=== PATIENT | male | born 1970 | race Caucasian/White ===

== ENCOUNTER 2018-04-06 13:34 | Inpatient (IN) | payer MEDICARE, MEDICAID ==
[2018-04-06] MEDS ORDERED: IBUPROFEN 200 MG TAB PO ONE (13:52)
[2018-04-06] MEDS ORDERED: VANCOMYCIN HCL INJ 1,000 MG, VANCOMYCIN HCL INJ 500 MG in SODIUM CHLORIDE 0.9% 250ML 25... IVPB ONE (14:02)
[2018-04-06] MEDS ORDERED: VANCOMYCIN HCL INJ 1,000 MG VIAL IVPB ONE (14:19)
[2018-04-06] MEDS ORDERED: VANCOMYCIN HCL INJ 500 MG VIAL ONE (14:19)
[2018-04-06] MEDS ORDERED: SODIUM CHLORIDE 0.9% 250ML 250 ML ONE (14:20)
--- NOTE | 2018-04-06 15:25 | RAD ---
EXAM DESCRIPTION: Neck,Soft Tissue CLINICAL HISTORY: facial cellulitis, sob, difficulty swallowing COMPARISON: None. TECHNIQUE: 2 views FINDINGS: Degenerative changes are observed in the lower cervical spine. No soft tissue abnormality is seen. No abnormal radiopaque foreign body is observed. The area epiglottic folds are intact. IMPRESSION: Mild degenerative changes are observed in the lower cervical spine. The exam is otherwise unremarkable. Electronically signed by: Jackson Busby MD 04/06/2018 3:24 PM CDT
--- NOTE | 2018-04-06 15:26 | RAD ---
EXAM DESCRIPTION: Chest,1 View CLINICAL HISTORY: facial cellulitis, sob, difficulty swallowing COMPARISON: None available TECHNIQUE: 1 view FINDINGS: The lungs are clear. There is no infiltrate or effusion. The heart is normal size. IMPRESSION: Normal one view chest Electronically signed by: Jackson Busby MD 04/06/2018 3:24 PM CDT
[2018-04-06] MEDS ORDERED: PIPERACILLIN/TAZOBACTAM 3.375 GM in SODIUM CHLORIDE 0.9% 100ML 100 ML IVPB ONE (15:40)
--- NOTE | 2018-04-06 16:10 | ED.PDOC ---
History of Present Illness - General Chief Complaint: Skin/Abrasion/Tear Stated Complaint: L facial swelling Time Seen by Provider: 04/06/18 13:51 Source: patient Exam Limitations: no limitations - History of Present Illness Initial Comments: the patient is a 47-year-old male presenting to emergency room secondary to a left-sided facial cellulitis that extends from the left nasolabial fold. It has been present and progressive for the last 48 hours. The patient is starting to feel sick from it. He does have exquisite pain over the area. he is having some mild nausea and diaphoresis. He is feeling tremulous. Timing/Duration: other - 48 hours Severity: moderate Improving Factors: nothing Worsening Factors: nothing Associated Symptoms: diaphoresis, fever/chills, malaise, nausea/vomiting Allergies/Adverse Reactions: Allergies NO KNOWN ALLERGY Allergy (Verified 04/06/18 14:24) Home Medications: Ambulatory Orders NK [NK] 04/06/18 Review of Systems - Review of Systems Constitutional: States: fever, malaise EENTM: States: see HPI Respiratory: States: no symptoms reported Cardiology: States: no symptoms reported Gastrointestinal/Abdominal: States: no symptoms reported Genitourinary: States: no symptoms reported Musculoskeletal: States: no symptoms reported Skin: States: see HPI Neurological: States: no symptoms reported Endocrine: States: no symptoms reported All other Systems: No Change from Baseline Past Medical History (General) - Patient Medical History Hx Seizures: No Hx Stroke: No Hx Dementia: No Hx Asthma: No Hx of COPD: No Hx Cardiac Disorders: No Hx Congestive Heart Failure: No Hx Pacemaker: No Hx Hypertension: No Hx Thyroid Disease: No Hx Diabetes: No Hx Gastroesophageal Reflux: No Hx Renal Disease: No Hx of HIV: No Hx MRSA: No - Vaccination History Hx Tetanus, Diphtheria Vaccination: No Hx Influenza Vaccination: No - 2017 Hx Pneumococcal Vaccination: No - Social History Hx Tobacco Use: Yes Hx Alcohol Use: Yes - Social use Family Medical History - Family History Father Family History: No Known Living Status: Still Living Physical Exam - Physical Exam General Appearance: Alert, Other - diaphoretic and obviously in pain Eye Exam: bilateral normal Ears, Nose, Throat: hearing grossly normal, normal pharynx, other - left upper lip swelling that extends up past the left nasal labial fold up towards the cheek. No erythema. Maximum induration is at the left nasolabial fold. 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 I did attempt to perform an aspiration of the area of maximum induration just to the left of the left nasolabial fold after risks and benefits were explained. what returned was mostly bloody. We did go ahead and culture that anyway. He also received a blood culture. Laboratory work and vital signs are actually reassuring however the patient appears much more sick than those would indicate. The patient has been started on vancomycin and Zosyn. He will be admitted for IV therapy and monitoring overnight. If he goes ahead and develops an abscess he will need either an I&D or a repeat attempted aspiration. Patient does understand this. no evidence of altered mental status or meningitis at this time. Admitted for further care. Departure - Departure Clinical Impression: Facial cellulitis Disposition: Admit Patient Home Medications: Ambulatory Orders NK [NK] 04/06/18 Decision To Admit - Decistion To Admit Decision to Admit Reason: Medical Nature Decision to Admit Date: 04/06/18 Decision to Admit Time: 16:13
--- NOTE | 2018-04-06 16:20 | HP ---
SUPERVISING PHYSICIAN: Slick Pedroza M.D. CHIEF COMPLAINT: Left facial swelling. HISTORY OF PRESENT ILLNESS: This is a 47 year-old male patient who presented to the Emergency Room secondary to a left sided facial cellulitis that extended from his upper lip to left of his nasal labial fold. It has been problematic for about 2 to 3 days. The patient said he had felt fairly sick from it and had a lot of pain over the area. He also complained of some mild nausea and diaphoresis. He denied fever but he did say he had some chills. In the Emergency Room his initial lab work showed a white count of 9.7 with hemoglobin 15.9, hematocrit 47.4. Chemistries showed electrolytes within normal limits. Lactic acid was 0.7. He was given some vancomycin in the Emergency Room and an initial dose of Zosyn. It is to be noted that he has very poor dentition. He was given some Motrin and I was called for hospital admission. PAST MEDICAL HISTORY: 1. Gastroesophageal reflux disease. 2. Multiple dental problems. PAST SURGICAL HISTORY: 1. Left eye surgery. 2. No surgery due to a broken nose. 3. Open reduction and internal fixation of the right ankle after a trauma. OUTPATIENT MEDICATIONS: None. ALLERGIES: NO KNOWN DRUG ALLERGIES. SOCIAL HISTORY: He is . He lives in [place]. He has 1 child. He smokes approximately 1 pack of cigarettes daily and has for over 30 years. He drinks 2 to 3 beers 2 to 3 times per week. He denies any illicit drug use. REVIEW OF SYSTEMS: GENERAL: Positive for chills and fatigue. Negative for fever or weight changes. HEENT: As per History of Present Illness. RESPIRATORY: Positive for shortness of breath and cough. Negative for wheezing. CARDIAC: Negative for chest pain, palpitations or tachycardia. GASTROINTESTINAL: Positive for nausea. Negative for vomiting, abdominal pain, constipation or diarrhea. GENITOURINARY: Negative for dysuria, polyuria or hematuria. SKIN: Positive for diaphoresis. Negative for lesions or rashes other than his face as per History of Present Illness. NEUROLOGIC: Negative for headaches, dizziness or seizures. LABORATORY: Labs as per History of Present Illness. He also has a C reactive protein of 6.5 and an ESR of 64. Blood cultures are pending. He also had a soft tissue neck x-ray that showed mild degenerative changes observed in the lower cervical spine. The exam is otherwise unremarkable. Chest x-ray shows normal one view chest. All other labs and films have been reviewed via the EMR. PHYSICAL EXAMINATION: VITAL SIGNS: GENERAL: HEENT: NECK: CHEST: CARDIOVASCULAR: ABDOMEN: EXTREMITIES: NEUROLOGIC: RECTAL: ASSESSMENT: 1. Left sided facial cellulitis, may be due to a previous abrasion and/or poor dentition. 2. Elevated blood pressure without diagnosis of hypertension. Question it is pain versus actual hypertension. 3. Gastroesophageal reflux disease. 4. Shortness of breath in a chronic smoker in a 30 plus pack year smoker. PLAN: We will admit the patient to the hospital. I will continue him on vancomycin per Pharmacy protocol. Will also continue the Zosyn. He will have a PPI for ulcer prophylaxis, Lovenox for DVT prophylaxis. Will monitor his cultures as well as repeat his lab for in the morning. He did have a culture done of the area on his face and it is difficult to ascertain if it is due to his poor dentition or if it is actually in the face. Dr. Marcano from the [facility] was not sure that it was an adequate sample, but there was a culture of the wound sent off. Will also need to monitor his blood pressure as he may need to be put on an antihypertensive. I have also given him some [place] for pain as well as some Motrin. Will continue to monitor him closely and follow as needed. Dr. Pedroza is the collaborating physician available for consultation. #[id number] [facility]ITALBrandon
[2018-04-06] MEDS ORDERED: PIPERACILLIN/TAZOBACTAM 3.375 GM VIAL IVPB ONE ×2 (17:39→19:26)
[2018-04-06] MEDS ORDERED: SODIUM CHLORIDE 0.9% 100ML 100 ML IVPB ONE ×2 (17:39→19:27)
[2018-04-06] MEDS ORDERED: SODIUM CHLORIDE 0.9% (FLUSH) 10 ML SYG IV PRN (18:09)
[2018-04-06] MEDS ORDERED: ALBUTEROL SULFATE 2.5 MG/3 ML VIAL NEB PRN (18:11)
[2018-04-06] MEDS ORDERED: IV SET AND CAP CHANGE INJ INJ SCH (18:30)
[2018-04-06] MEDS: KCL 20MEQ/0.45% NS 1,000 ML IVS PRN (18:58)
[2018-04-06] MEDS: ALBUTEROL SULFATE 2.5 MG/3 ML VIAL NEB SCH (19:50)
[2018-04-06] MEDS: HYDROcodone 5MG/APAP 325MG 1 EA TAB PO PRN (20:48)
[2018-04-06] MEDS: IBUPROFEN 200 MG TAB PO PRN (20:48)
[2018-04-06] MEDS: ENOXAPARIN SODIUM 40 MG/0.4 ML SYG SUBCU SCH (20:49)
[2018-04-06] MEDS: PIPERACILLIN/TAZOBACTAM 3.375 GM in SODIUM CHLORIDE 0.9% 100ML 100 ML IVPB SCH (21:31)
[2018-04-07] MEDS ORDERED: PIPERACILLIN/TAZOBACTAM 3.375 GM VIAL IVPB ONE ×4 (02:59→19:58)
[2018-04-07] MEDS ORDERED: SODIUM CHLORIDE 0.9% 100ML 100 ML IVPB ONE ×4 (02:59→19:59)
[2018-04-07] MEDS: IBUPROFEN 200 MG TAB PO PRN ×2 (03:08→14:55)
[2018-04-07] MEDS: PIPERACILLIN/TAZOBACTAM 3.375 GM in SODIUM CHLORIDE 0.9% 100ML 100 ML IVPB SCH ×3 (05:29→20:36)
[2018-04-07] MEDS: PANTOPRAZOLE SODIUM IV 40 MG VIAL IV SCH (06:36)
[2018-04-07] MEDS ORDERED: VANCOMYCIN PER PHARMACY INJ SCH (08:00)
[2018-04-07] MEDS: ALBUTEROL SULFATE 2.5 MG/3 ML VIAL NEB SCH ×2 (08:36→20:15)
[2018-04-07] MEDS ORDERED: SODIUM CHLORIDE 0.9% 250ML 250 ML ONE ×2 (09:39→17:37)
[2018-04-07] MEDS ORDERED: VANCOMYCIN HCL INJ 1,000 MG VIAL IVPB ONE ×2 (09:39→17:37)
[2018-04-07] MEDS: VANCOMYCIN HCL INJ 1,000 MG in SODIUM CHLORIDE 0.9% 250ML 250 ML IVPB SCH ×2 (09:44→17:52)
[2018-04-07] MEDS: HYDROcodone 5MG/APAP 325MG 1 EA TAB PO PRN ×2 (11:14→17:53)
[2018-04-07] MEDS: CHLORHEXIDINE MOUTH RINSE 473 ML BTTL SWSP SCH ×3 (12:38→20:35)
[2018-04-07] MEDS: KCL 20MEQ/0.45% NS 1,000 ML IVS PRN (12:38)
--- NOTE | 2018-04-07 14:23 | PN ---
SUPERVISING PHYSICIAN: Ayleen Pedroza MD DATE: 04/07/18 SUBJECTIVE: The patient continues to have a significant amount of pain to the left facial area. He notes the swelling is down a little bit. He has been afebrile overnight. He has had no additional complaints at this time. OBJECTIVE: VITAL SIGNS: T-max 98.5. Pulse 80. Blood pressure 148/77. Respirations 18. Saturation 97% on room air. I&Os show negative balance of 510 with 840 in, 1350 out. Weight 85.3 kg. GENERAL: The patient is in no apparent acute distress. He is resting comfortably and is alert. HEENT: Left side of the face over the left upper lip, there is still some swelling into the left nasolabial fold up into the cheek with some continued erythema. There is no obvious induration to the area, no fluctuations noted. No drainage is apparent. His oropharynx is pink. He has very poor dentition with multiple cracked teeth. NECK: Nontender, full range of motion. CHEST: Lungs clear to auscultation bilaterally. HEART: Regular rate and rhythm. ABDOMEN: Soft, nontender. Positive bowel sounds. EXTREMITIES: No cyanosis, clubbing or edema. NEUROLOGIC: Alert and oriented times three. LABORATORY: White count remains within normal limits at 8,100 with hemoglobin 15.2, hematocrit 45.2, platelet count 212,000. Differential without a left shift. Chemistries continue to show normal electrolytes. Potassium 3.9, BUN 7 , creatinine 0.89, glucose 94. Liver functions all within normal limits. MICROBIOLOGY: Blood cultures pending, but negative to date. Wound culture pending. ASSESSMENT: 1. Left sided facial cellulitis versus Erysiphales, uncertain etiology, probably related to poor dentition versus possible abrasion to upper lip, showing response with Unasyn and vancomycin. 2. High blood pressure without diagnosis of hypertension, likely due to pain response, stable. 3. Gastroesophageal reflux disease, stable. 4. Shortness of breath in a chronic smoker with a 30 plus pack year habit, continue to monitor. PLAN: At this point we will continue vancomycin per pharmacy protocol as well as Zosyn as he is showing good response to treatment. He remains on DVT prophylaxis. We will continue to monitor cultures and await those results to further target antibiotic therapy. We will anticipate at least another 48 hours of antibiotic coverage given the location of the cellulitis as well as the severity. I will start him on some Peridex orally to hopefully prevent any further worsening of any lesions or areas of concern orally. He certainly would benefit from seeing a dentist at some point. Once he is stable and can transition to outpatient treatment measures, he will need close clinical followup with primary care provider at some point. Until then, we will continue to monitor the patient closely and treat as needed. #[id number] [facility]
[2018-04-07] MEDS: ENOXAPARIN SODIUM 40 MG/0.4 ML SYG SUBCU SCH (20:35)
[2018-04-08] MEDS ORDERED: SODIUM CHLORIDE 0.9% 250ML 250 ML ONE ×4 (01:22→19:47)
[2018-04-08] MEDS ORDERED: VANCOMYCIN HCL INJ 1,000 MG VIAL IVPB ONE ×4 (01:22→19:48)
[2018-04-08] MEDS: VANCOMYCIN HCL INJ 1,000 MG in SODIUM CHLORIDE 0.9% 250ML 250 ML IVPB SCH ×3 (01:26→17:38)
[2018-04-08] MEDS: HYDROcodone 5MG/APAP 325MG 1 EA TAB PO PRN ×3 (01:33→18:45)
[2018-04-08] MEDS: PIPERACILLIN/TAZOBACTAM 3.375 GM in SODIUM CHLORIDE 0.9% 100ML 100 ML IVPB SCH ×3 (04:32→20:40)
[2018-04-08] MEDS: PANTOPRAZOLE SODIUM IV 40 MG VIAL IV SCH (05:54)
[2018-04-08] MEDS: ALBUTEROL SULFATE 2.5 MG/3 ML VIAL NEB SCH ×2 (07:13→19:56)
[2018-04-08] MEDS: CHLORHEXIDINE MOUTH RINSE 473 ML BTTL SWSP SCH ×4 (08:03→20:39)
[2018-04-08] MEDS: LISINOPRIL 10 MG TAB PO SCH (09:23)
[2018-04-08] MEDS: NICOTINE PATCH 21 MG TD SCH (11:26)
[2018-04-08] MEDS ORDERED: PIPERACILLIN/TAZOBACTAM 3.375 GM VIAL IVPB ONE ×3 (12:47→19:48)
[2018-04-08] MEDS ORDERED: SODIUM CHLORIDE 0.9% 100ML 100 ML IVPB ONE ×3 (12:47→19:49)
[2018-04-08] MEDS: KCL 20MEQ/0.45% NS 1,000 ML IVS PRN (13:27)
[2018-04-08] MEDS: ENOXAPARIN SODIUM 40 MG/0.4 ML SYG SUBCU SCH (20:39)
[2018-04-09] MEDS: VANCOMYCIN HCL INJ 1,000 MG in SODIUM CHLORIDE 0.9% 250ML 250 ML IVPB SCH ×2 (01:48→09:46)
[2018-04-09] MEDS: PIPERACILLIN/TAZOBACTAM 3.375 GM in SODIUM CHLORIDE 0.9% 100ML 100 ML IVPB SCH (04:45)
[2018-04-09] MEDS: PANTOPRAZOLE SODIUM IV 40 MG VIAL IV SCH (06:01)
[2018-04-09] MEDS: ALBUTEROL SULFATE 2.5 MG/3 ML VIAL NEB SCH (08:03)
[2018-04-09 08:41] VITALS: BP 144/87; TEMP 97.7; O2SAT 98
[2018-04-09] MEDS: HYDROcodone 5MG/APAP 325MG 1 EA TAB PO PRN (08:41)
[2018-04-09] MEDS: NICOTINE PATCH 21 MG TD SCH (08:41)
[2018-04-09] MEDS: LISINOPRIL 10 MG TAB PO SCH (08:41)
[2018-04-09] MEDS: CHLORHEXIDINE MOUTH RINSE 473 ML BTTL SWSP SCH (08:41)
[2018-04-09] MEDS ORDERED: SODIUM CHLORIDE 0.9% 250ML 250 ML ONE (09:37)
[2018-04-09] MEDS ORDERED: VANCOMYCIN HCL INJ 1,000 MG VIAL IVPB ONE (09:37)
[2018-04-09] MEDS ORDERED: INFLUENZA VIRUS VACC (ADULT) 0.5 ML SYG IM ONE (12:06)
--- NOTE | 2018-04-10 11:17 | PN ---
SUPERVISING PHYSICIAN: Ayleen Pedroza MD DATE: 04/08/18 SUBJECTIVE: The patient still has quite a bit of pain in his upper cheek area and nasolabial fold with some swelling. He notes he feels like the Peridex has helped somewhat, but he continues to feel poorly. OBJECTIVE: VITAL SIGNS: Temperature 97.9. Pulse 67. Blood pressure 121/80. Respirations 18. Saturation 96% on room air. I&Os are fairly balanced. Weight 85.9 kg. GENERAL: The patient appears to be comfortable in no acute distress. He is alert. HEENT: Left side of face continues with some swelling although improved from previous day, still notable around the nasolabial fold on the left side with some erythema. There is no obvious induration or fluctuation noted. No drainage. CHEST: Lungs clear to auscultation. HEART: Regular rate and rhythm. ABDOMEN: Soft, nontender. Positive bowel sounds. EXTREMITIES: No cyanosis, clubbing or edema. NEUROLOGIC: Alert and oriented times three. LABORATORY: C-reactive protein has shown elevation today from admission up to 8.1. Chemistries remain within normal limits. MICROBIOLOGY: Blood cultures are negative at 48 hours. Wound culture continues to be pending. ASSESSMENT: 1. Left sided facial cellulitis versus Erysiphales, uncertain etiology, probably related to poor dentition responding slowly to Unasyn and vancomycin, awaiting final culture results to target antibiotic therapy with elevating C-reactive protein requiring at least another 24 hours of more aggressive antibiotic therapy before transition to p.o. medication. 2. High blood pressure without diagnosis of hypertension, started o lisinopril , showing good response. 3. Gastroesophageal reflux disease, stable. 4. Shortness of breath in a chronic smoker with a 30 plus pack year history, improving. PLAN: I will continue vancomycin and Unasyn with anticipation of hopefully transitioning to p.o. medications tomorrow and discharging. We will continue to await culture results to further target antibiotic therapy. He is doing well on Peridex. I did discuss that he needs to followup with a primary care physician which he needs to establish with in regards to future healthcare and followup on this current acute illness as well as see a dentist in regard to his poor dentition. Until he can transition to p.o. medication, we will continue to monitor and treat as needed. #[id number] [facility]
--- NOTE | 2018-04-10 14:37 | DS ---
SUPERVISING PHYSICIAN: Ayleen Pedroza MD ADMISSION DIAGNOSIS: 1. Left sided facial cellulitis due to previous abrasion and/or poor dentition. 2. Elevated blood pressure with no formal diagnosis of hypertension. 3. Gastroesophageal reflux disease. 4. Shortness of breath in a chronic smoker with a 30 plus pack year history. DISCHARGE DIAGNOSIS: 1. Left sided facial cellulitis/Erysiphales, uncertain etiology, probably related to poor dentition and odontic disease versus small abrasion with abscess to the upper lip and left nasolabial fold, showing good response to Unasyn and vancomycin, with culture results showing a skin contaminant. 2. High blood pressure with no formal diagnosis, showing good response to lisinopril. 3. Gastroesophageal reflux disease, stable. 4. Shortness of breath, improved, in a chronic smoker with a 30 plus pack year history, encouraged to stop smoking. REASON FOR HOSPITALIZATION: Mr. Simon is a 47-year-old male patient who presented to the Emergency Room secondary to a left sided facial cellulitis that extended from his upper lip to left of his nasal labial fold. It had been problematic for about 2 to 3 days. The patient said he had felt fairly sick from it and had increasing pain over the area for the past couple of days. He also complained of some mild nausea and diaphoresis on admission, but denied fever, but did have some chills. In the Emergency Room, his initial lab work showed a white count of 9.7 with lactic acid was 0.7. He was given some vancomycin in the Emergency Room and an initial dose of Zosyn. He was admitted to the Medical/Surgical Floor for ongoing treatment with the patient having poor dentition as possibly the origin of infection. LABORATORY: CBC showed a normal white count both on admission and discharge. Hemoglobin and hematocrit were stable at 15.2 and 45.2 respectively at discharge. Platelet count 212,000. Differential without a left shift. ESR was elevated on admission at 54. Chemistries showed normal electrolytes both on admission through discharge with a creatinine of 0.79. He did have an elevated C-reactive protein at discharge of 8.1. Liver functions were all within normal limits. He had one vancomycin trough of 12.5. MICROBIOLOGY: Wound culture final results showed skin contaminant, normal kiana. Blood cultures remained negative after 3 days. RADIOLOGY: Soft tissue of the neck in the Emergency Room per radiologic interpretation showed mild degenerative changes of the lower cervical spine. The exam was otherwise unremarkable. Chest x-ray prior to admission showed normal one-view of the chest per radiologic interpretation. HOSPITAL COURSE: Mr. Simon was admitted on 04/06/18 as noted in history of present illness for facial cellulitis on the left side. He was started on Zosyn and vancomycin. He showed fairly slow response, but was improving prior to discharge and was felt well enough to continue with outpatient management and oral medications. It was noted his blood pressure was elevated through admission and he was started on lisinopril which did show some improvement. He was given nicotine patch and encouraged to stop smoking. The patient was started on Peridex oral, swish and spit, and showed good response to that treatment. PHYSICAL EXAMINATION: DISCHARGE VITAL SIGNS: Temperature 97.7. Pulse 87. Blood pressure 144/87. Respirations 16. Saturation 98% on room air. GENERAL: The patient was seen and examined. HEENT: Left side of the face showed mild erythema, but no significant swelling. It was no longer tender to palpation. The left upper lip showed continued mild edema and was tenderness to palpation, but no other areas of question of fluctuation or abscess formation were noted. CHEST: Clear to auscultation. HEART: Regular rate and rhythm. ABDOMEN: Soft, nontender. Positive bowel sounds. EXTREMITIES: Without cyanosis, clubbing or edema. NEUROLOGIC: Alert and oriented x3. PLAN: The patient was discharged on 04/09/18 with instructions to followup with a primary care provider. He is currently not under the care of any healthcare provider and was encouraged, and he voiced that he would go see Elia Yoder as soon as he could get an appointment. He was to continue with the oral Peridex and encouraged to see dentist. He likely will need extractions and will benefit from dentures. He was again encouraged to stop smoking. He was instructed on ways to stop and was given instructions on how to use a nicotine patch. He certainly more likely would benefit from some medication to assist in this such as Chantix or Wellbutrin. DISCHARGE INSTRUCTIONS: He was to continue with medications as prescribed. Diet was to increase as tolerated. Activity was to increase as tolerated. DISCHARGED MEDICATIONS: 1. Lisinopril 10 mg daily, #30, no refills. 2. Peridex 10 mL swish and spit 3 times a day, #1 bottle, no refills. 3. Tylenol No. 3 q.4h. as needed for pain, #30, no refills. 4. Continue antibiotic with 1 Augmentin 875 mg b.i.d. for 10 days, #20, no refills. 5. Doxycycline 100 mg b.i.d., #20, no refills. DISPOSITION: The patient is discharged to the care of his family. Condition on discharge was stable and improved. #[id number] [facility]
[2018-04-11] MEDS ORDERED: CHLORHEXIDINE MOUTH RINSE 473 ML BTTL ONE (13:18)
== END 2018-04-09 12:45 | disposition home or self-care (01) | DRG 603 ==
LOC: ER 13:34 → MS 16:18
PROVIDERS: ADMIT Nurse Practitioner Acute Care; ATTEND Nurse Practitioner Family
DX: L03.211 Cellulitis of face (principal); R03.0 Elevated blood-pressure reading, without diagnosis of hypertension; K21.9 Gastro-esophageal reflux disease without esophagitis; F17.210 Nicotine dependence, cigarettes, uncomplicated; K13.0 Diseases of lips

== ENCOUNTER 2019-02-12 20:56 | Emergency (ER) | payer MEDICAID, MEDICARE ==
[2019-02-12 21:12] VITALS: BP 153/111; TEMP 98.7
--- NOTE | 2019-02-12 21:13 | ED.PDOC ---
History of Present Illness - General Chief Complaint: Dental/Mouth Stated Complaint: toothache Time Seen by Provider: 02/12/19 21:10 Source: patient Exam Limitations: no limitations - History of Present Illness Initial Comments: the patient is a 48-year-old male presenting to the emergency room secondary to left lower dental painstarting earlier today. The patient has numerous dental caries and significant decay. No obvious abscess formation. He does appear to be having some referred neurological pain to that side of the cheek. Minimal cervical lymphadenopathy on that side. No obvious rash at this point. Timing/Duration: other - 12 hours Severity: moderate Improving Factors: nothing Worsening Factors: eating Associated Symptoms: denies symptoms Allergies/Adverse Reactions: Allergies NO KNOWN ALLERGY Allergy (Verified 04/06/18 16:48) Home Medications: Ambulatory Orders Amoxicillin & Pot Clavulanate [Augmentin Tab] 875 mg PO BID #14 tab 02/12/19 Tramadol HCl 50 mg PO Q8HR PRN #20 tab 02/12/19 Review of Systems - Review of Systems Constitutional: States: no symptoms reported EENTM: States: see HPI Respiratory: States: no symptoms reported Cardiology: States: no symptoms reported Gastrointestinal/Abdominal: States: no symptoms reported Genitourinary: States: no symptoms reported Musculoskeletal: States: no symptoms reported Skin: States: no symptoms reported Neurological: States: no symptoms reported Endocrine: States: no symptoms reported All other Systems: No Change from Baseline Past Medical History (General) - Patient Medical History Hx Seizures: No Hx Stroke: No Hx Dementia: No Hx Asthma: No Hx of COPD: No Hx Cardiac Disorders: No Hx Congestive Heart Failure: No Hx Pacemaker: No Hx Hypertension: No Hx Thyroid Disease: No Hx Diabetes: No Hx Gastroesophageal Reflux: No Hx Renal Disease: No Hx of HIV: No Hx MRSA: No - Vaccination History Hx Tetanus, Diphtheria Vaccination: Yes Hx Influenza Vaccination: No - 2017 Hx Pneumococcal Vaccination: No - Social History Hx Tobacco Use: Yes Hx Alcohol Use: Yes - Social use Family Medical History - Family History Father Family History: No Known Living Status: Still Living Physical Exam - Physical Exam General Appearance: Alert, No apparent distress Eye Exam: bilateral normal Ears, Nose, Throat: hearing grossly normal, other - severe dental caries. 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 The patient was placed on Augmentin for the next 7 days and he'll be written for some tramadol for pain control. He can additionally takes 600 mg of Motrin 3 times a day for the next few days as well to reduce discomfort. Topical Anbesol may also prove an official. Keep follow- up with dentist. [email or web address] [id number] Departure - Departure Clinical Impression: Pain due to dental caries Disposition: Discharge to Home or Self Care Condition: Fair Departure Forms: ED Discharge - Pt. Copy, Patient Portal Self Enrollment Instructions: DI for Dental Pain Diet: regular diet Activity: increase activity as tolerated Prescriptions: Tramadol HCl 50 mg PO Q8HR PRN #20 tab PRN Reason: Moderate Pain Amoxicillin & Pot Clavulanate [Augmentin Tab] 875 mg PO BID #14 tab Home Medications: Ambulatory Orders Amoxicillin & Pot Clavulanate [Augmentin Tab] 875 mg PO BID #14 tab 02/12/19 Tramadol HCl 50 mg PO Q8HR PRN #20 tab 02/12/19 Additional Instructions: the patient is a 48-year-old male with significant dental caries presenting secondary to dental pain. The patient was placed on Augmentin for the next 7 days and he'll be written for some tramadol for pain control. He can additionally takes 600 mg of Motrin 3 times a day for the next few days as well to reduce discomfort. Topical Anbesol may also prove an official. Keep follow- up with dentist.
[2019-02-12] MEDS: HYDROcodone 7.5MG/APAP 325MG 1 EA TAB PO ONE (21:14)
[2019-02-12] MEDS: AMOXICILLIN & POT CLAVULANATE 875 MG TAB PO ONE (21:14)
[2019-02-12] MEDS ORDERED: PREGABALIN 75 MG CAP ONE (21:16)
[2019-02-12] MEDS: PREGABALIN 75 MG CAP PO ONE (21:18)
[2019-02-12 21:21] VITALS: O2SAT 99
== END 2019-02-12 21:22 | disposition home or self-care (01) ==
LOC: ER 20:56
DX: K02.9 Dental caries, unspecified (principal); R59.1 Generalized enlarged lymph nodes; Z87.891 Personal history of nicotine dependence